=== PATIENT | female | born 1975 | race Caucasian/White ===

== ENCOUNTER 2018-05-02 12:31 | Inpatient (IN) | payer OTHER ==
[2018-05-02] MEDS ORDERED: Ampicillin 2 GM in Sodium Chloride 0.9% 100 ML IV ONE (17:00)
[2018-05-02] MEDS ORDERED: Sodium Chloride 0.9% 10 ML Syringe FLUSH PRN (17:23)
[2018-05-02] MEDS ORDERED: Oxytocin/Lactated Ringers 10 UNIT/1,000 ML BAG IV SCH (17:30)
[2018-05-02] MEDS ORDERED: Misoprostol 25 MCG (1/4 of 100 MCG) Tab ONE (17:45)
[2018-05-02] MEDS: Misoprostol 25 MCG (1/4 of 100 MCG) Tab VAG SCH ×2 (18:04→22:08)
[2018-05-02] MEDS ORDERED: diphenhydrAMINE 50 MG/ML SDV IVPUSH PRN (18:20)
[2018-05-02] MEDS ORDERED: ePHEDrine 50 MG/ML SDV IVPUSH PRN (18:20)
[2018-05-02] MEDS ORDERED: fentaNYL 100 MCG/2 ML SDV EPIDUR PRN (18:20)
[2018-05-02] MEDS ORDERED: Ondansetron 4 MG/2 ML SDV IVPUSH PRN (18:20)
[2018-05-02] MEDS ORDERED: Bupivacaine/fentaNYL/NS 100 ML Bag EPIDUR SCH (18:30)
--- NOTE | 2018-05-02 18:50 | PCM.PREANE ---
Preanesthetic Assessment - Anesthesia/Transfusion/Family Hx Anesthesia History: Prior Anesthesia Without Reaction Family History of Anesthesia Reaction: No Transfusion History: No Prior Transfusion(s) - Review of Systems General: No Symptoms Pulmonary: No Symptoms Cardiovascular: No Symptoms, Other (Hypertension) Gastrointestinal: No Symptoms Neurological: No Symptoms, Other (Back pain and sciatic pain at times) Other: Reports: None - Physical Assessment Pulse: 74 O2 Sat by Pulse Oximetry: 98 Respiratory Rate: 16 Vital Signs: Last Vital Signs Temp 36.8 C 05/02/18 18:33 Pulse 74 05/02/18 18:30 Resp 16 05/02/18 18:33 BP 156/85 H 05/02/18 18:33 Pulse Ox Height: 1.74 m Weight: 126.552 kg ASA Class: 2 Mental Status: Alert & Oriented x3 Airway Class: Mallampati = 2 Dentition: Reports: Normal Dentition Thyro-Mental Finger Breadths: 3 Mouth Opening Finger Breadths: 3 ROM/Head Extension: Full Lungs: Clear to Auscultation, Normal Respiratory Effort Cardiovascular: Regular Rate, Regular Rhythm - Lab Values: Laboratory Last Values WBC 10.02 K/mm3 (3.98-10.04) 05/02/18 17:45 RBC 3.91 M/mm3 (3.98-5.22) L 05/02/18 17:45 Hgb 12.1 gm/L (11.2-15.7) 05/02/18 17:45 Hct 36.5 % (34.1-44.9) 05/02/18 17:45 MCV 93.4 fl (79.4-94.8) 05/02/18 17:45 MCH 30.9 pg (25.6-32.2) 05/02/18 17:45 MCHC 33.2 g/dl (32.2-35.5) 05/02/18 17:45 RDW Std Deviation 47.3 fL (36.4-46.3) H 05/02/18 17:45 Plt Count 210 K/mm3 (182-369) 05/02/18 17:45 MPV 12.2 fl (9.4-12.3) 05/02/18 17:45 Neut % (Auto) 75.7 % (34.0-71.1) H 05/02/18 17:45 Lymph % (Auto) 14.7 % (19.3-51.7) L 05/02/18 17:45 Garza % (Auto) 8.4 % (4.7-12.5) 05/02/18 17:45 Eos % (Auto) 0.7 (0.7-5.8) 05/02/18 17:45 Baso % (Auto) 0.2 % (0.1-1.2) 05/02/18 17:45 Neut # (Auto) 7.59 K/mm3 (1.56-6.13) H 05/02/18 17:45 Lymph # (Auto) 1.47 K/mm3 (1.18-3.74) 05/02/18 17:45 Garza # (Auto) 0.84 K/mm3 (0.24-0.36) H 05/02/18 17:45 Eos # (Auto) 0.07 K/mm3 (0.04-0.36) 05/02/18 17:45 Baso # (Auto) 0.02 K/mm3 (0.01-0.08) 05/02/18 17:45 Blood Type O POSITIVE 05/02/18 17:45 Gel Antibody Screen Negative 05/02/18 17:45 - Allergies Allergies/Adverse Reactions: Allergies Allergy/AdvReac Type Severity Reaction Status Date / Time No Known Allergies Allergy Verified 04/18/18 12:04 - Acknowledgements Anesthesia Type Planned: Epidural Pt an Appropriate Candidate for the Planned Anesthesia: Yes Alternatives and Risks of Anesthesia Discussed w Pt/Guardian: Yes Pt/Guardian Understands and Agrees with Anesthesia Plan: Yes PreAnesthesia Questionnaire Cardiovascular History: Reports: Hypertension BODY FITTER History: Reports: - Past Surgical History Cardiovascular Surgical History: Reports: None - SUBSTANCE USE Smoking Status *Q: Never Smoker Second Hand Smoke Exposure: No Recreational Drug Use History: No - HOME MEDS Home Medications: Home Meds Aspirin [Halfprin] 81 mg PO DAILY 05/02/18 [History] Ferrous Sulfate, Dried [Iron] 1 tab DAILY 05/02/18 [History] Labetalol HCl [Labetalol] 2 tab BID 05/02/18 [History] Vits #93/Iron Fum/FA [ Formula Tablet] 1 tab DAILY 05/02/18 [ History] - CURRENT (IN HOUSE) MEDS Current Meds: Current Medications Diphenhydramine HCl (Benadryl) 25 mg IVPUSH Q6H PRN PRN Reason: Pruritis Ephedrine Sulfate (Ephedrine Sulfate) 5 mg IVPUSH ASDIRECTED PRN PRN Reason: Hypotension Fentanyl (Sublimaze) 100 mcg EPIDUR ONETIME PRN PRN Reason: Pain Fentanyl/Bupivacaine HCl (Fentanyl/Bupivacaine/Ns 2 Mcg-0.125% 100 Ml) 100 ml EPIDUR ASDIRECTED NATHANIEL Ampicillin Sodium 1 gm/ Sodium (Chloride) 100 mls @ 200 mls/hr IV Q4H [facility]ATHANIEL Lactated Ringer's (Ringers, Lactated) 1,000 mls @ 100 mls/hr IV ASDIRECTED NATHANIEL Oxytocin/Lactated Ringer's (Pitocin In Lr 10 Units/1,000 Ml) 10 unit in 1,000 mls @ 12 mls/hr IV TITRATE NATHANIEL; Protocol Misoprostol (Cytotec) 25 mcg VAG Q4HR NATHANIEL Last Admin: 05/02/18 18:04 Dose: 25 mcg Ondansetron HCl (Zofran) 4 mg IVPUSH ONETIME PRN PRN Reason: Nausea/Vomiting Sodium Chloride (Saline Flush) 10 ml FLUSH ASDIRECTED PRN PRN Reason: Keep Vein Open Discontinued Medications Ampicillin Sodium 2 gm/ Sodium (Chloride) 100 mls @ 200 mls/hr IV ONETIME ONE Stop: 05/02/18 17:29 Last Admin: 05/02/18 18:43 Dose: 200 mls/hr Misoprostol (Cytotec) Confirm Administered Dose 25 mcg .ROUTE .STK-MED ONE Stop: 05/02/18 17:46 Last Admin: 05/02/18 17:48 Dose: Not Given
[2018-05-02] MEDS: Ampicillin 1 GM in Sodium Chloride 0.9% 100 ML IV SCH (22:54)
[2018-05-03] MEDS: Misoprostol 25 MCG (1/4 of 100 MCG) Tab VAG SCH ×3 (02:14→18:42)
[2018-05-03] MEDS: Ampicillin 1 GM in Sodium Chloride 0.9% 100 ML IV SCH ×3 (02:57→11:03)
[2018-05-03] MEDS: Lactated Ringers 1,000 ML IV SCH ×3 (06:39→11:01)
[2018-05-03] MEDS ORDERED: Labetalol 100 MG Tab PO SCH (09:00)
--- NOTE | 2018-05-03 13:04 | PCM.SN ---
- Free Text/Narrative Note: Stage I - Patient presented for induction for chronic hypertension. [place] bulb and cytotec x3 doses. SROM clear fluid about 12 hours later. Epidural for anesthesia. Progressed to complete with overall reassuring fht. Stage II - of viable male. Weight 7#1oz. Apgars 8/9. Head delivered in controlled manner over intact perinuem. Body and shoulders atraumatically. Positive cry. Cord clamped and cut. Stage III - of intact placenta. Some calcifications 3VC. EBL 500. No lacerations.
[2018-05-03] MEDS ORDERED: Docusate Sodium 100 MG Cap PO PRN (13:42)
[2018-05-03] MEDS ORDERED: Ibuprofen 600 MG Tab PO PRN (13:42)
[2018-05-03] MEDS ORDERED: Witch Hazel Medicated Pads 100/Jar TOP PRN (15:30)
[2018-05-03] MEDS ORDERED: Benzocaine/Menthol 20%-0.5% Spray 56 GM Canister TOP PRN (15:30)
[2018-05-03] MEDS ORDERED: Bupivacaine 0.25% 10 ML SDV ONE (22:00)
--- NOTE | 2018-05-04 07:43 | PCM48HPAN ---
Post Anesthesia Note - EVALUATION WITHIN 48HRS OF ANESTHETIC Vital Signs in Normal Range: Yes Patient Participated in Evaluation: Yes Respiratory Function Stable: Yes Airway Patent: Yes Cardiovascular Function Stable: Yes Hydration Status Stable: Yes Pain Control Satisfactory: Yes Nausea and Vomiting Control Satisfactory: Yes Mental Status Recovered: Yes Pulse Rate: 76 Resp Rate: 15 Temperature: 97.9 F Blood Pressure: 116/53
--- NOTE | 2018-05-04 09:47 | PCM.PNPP ---
- General Info Date of Service: 05/04/18 Functional Status: Reports: Pain Controlled - Review of Systems General: Reports: No Symptoms HEENT: Reports: No Symptoms Pulmonary: Reports: No Symptoms Cardiovascular: Reports: No Symptoms Gastrointestinal: Reports: No Symptoms Genitourinary: Reports: No Symptoms Musculoskeletal: Reports: No Symptoms Skin: Reports: No Symptoms Neurological: Reports: No Symptoms Psychiatric: Reports: No Symptoms - Patient Data Vital Signs - Most Recent: Last Vital Signs Temp 35.9 C 05/04/18 09:00 Pulse 83 05/04/18 09:00 Resp 16 05/04/18 09:00 BP 136/83 05/04/18 09:00 Pulse Ox 98 05/04/18 09:00 Weight - Most Recent: 126.552 kg I&O - Last 24 Hours: Intake & Output 05/03/18 05/04/18 05/04/18 22:59 06:59 14:59 Intake Total 300 Balance 300 Med Orders - Current: Current Medications Benzocaine/Menthol (Dermoplast Pain Relief [place]) 1 gm TOP ASDIRECTED PRN PRN Reason: Pain Last Admin: 05/03/18 17:38 Dose: 1 spray Docusate Sodium (Colace) 100 mg PO BID PRN PRN Reason: Constipation Ibuprofen (Motrin) 600 mg PO Q6H PRN PRN Reason: Mild pain or fever Witch Elina (Tucks) 1 pad TOP ASDIRECTED PRN PRN Reason: Pain Last Admin: 05/03/18 17:37 Dose: 1 pad Discontinued Medications Diphenhydramine HCl (Benadryl) 25 mg IVPUSH Q6H PRN PRN Reason: Pruritis Ephedrine Sulfate (Ephedrine Sulfate) 5 mg IVPUSH ASDIRECTED PRN PRN Reason: Hypotension Fentanyl (Sublimaze) 100 mcg EPIDUR ONETIME PRN PRN Reason: Pain Last Admin: 05/03/18 07:25 Dose: 100 mcg Fentanyl/Bupivacaine HCl (Fentanyl/Bupivacaine/Ns 2 Mcg-0.125% 100 Ml) 100 ml EPIDUR ASDIRECTED NATHANIEL Last Admin: 05/03/18 07:24 Dose: 100 ml Ampicillin Sodium 2 gm/ Sodium (Chloride) 100 mls @ 200 mls/hr IV ONETIME ONE Stop: 05/02/18 17:29 Last Admin: 05/02/18 18:43 Dose: 200 mls/hr Ampicillin Sodium 1 gm/ Sodium (Chloride) 100 mls @ 200 mls/hr IV Q4H [facility] Last Admin: 05/03/18 11:03 Dose: 200 mls/hr Lactated Ringer's (Ringers, Lactated) 1,000 mls @ 100 mls/hr IV ASDIRECTED NATHANIEL Last Admin: 05/03/18 11:01 Dose: 150 mls/hr Oxytocin/Lactated Ringer's (Pitocin In Lr 10 Units/1,000 Ml) 10 unit in 1,000 mls @ 12 mls/hr IV TITRATE NATHANIEL; Protocol Last Titration: 05/03/18 10:09 Dose: 4 munits/min, 24 mls/hr Labetalol HCl (Normodyne) 200 mg PO BID [facility] Last Admin: 05/03/18 18:47 Dose: Not Given Misoprostol (Cytotec) 25 mcg VAG Q4HR [facility] Last Admin: 05/03/18 18:42 Dose: Not Given Misoprostol (Cytotec) Confirm Administered Dose 25 mcg .ROUTE .STK-MED ONE Stop: 05/02/18 17:46 Last Admin: 05/02/18 17:48 Dose: Not Given Ondansetron HCl (Zofran) 4 mg IVPUSH ONETIME PRN PRN Reason: Nausea/Vomiting Last Admin: 05/03/18 06:52 Dose: 4 mg Sodium Chloride (Saline Flush) 10 ml FLUSH ASDIRECTED PRN PRN Reason: Keep Vein Open - Infant Interaction Infant Disposition, : at Bedside Support Person: - Recovery Exam Fundal Tone: Firm Fundal Level: 1 Fingerbreadths Below Umbilicus Fundal Placement: Midline Lochia Amount: Small, Moderate Lochia Color: Rubra/Red Episiotomy/Laceration: Approximated Bladder Status: Voiding Urinary Elimination: Voided - Exam General: Alert, Oriented HEENT: Pupils Equal Neck: Supple Lungs: Clear to Auscultation, Normal Respiratory Effort Cardiovascular: Regular Rate, Regular Rhythm GI/Abdominal Exam: Normal Bowel Sounds, Soft, Non-Tender, No Organomegaly, No Distention, No Abnormal Bruit, No Mass, Pelvis Stable Extremities: Normal Inspection, Normal Range of Motion, Non-Tender, No Pedal Edema, Normal Capillary Refill Neurological: No New Focal Deficit Psy/Mental Status: Alert, Normal Affect, Normal Mood - Problem List Review Problem List Initiated/Reviewed/Updated: Yes - My Orders Last 24 Hours: My Active Orders 05/03/18 13:42 Activity as Tolerated [RC] PER UNIT ROUTINE Vital Signs [RC] 03,09,15,21 Docusate Sodium [Colace] 100 mg PO BID PRN Ibuprofen [Motrin] 600 mg PO Q6H PRN Assess Lochia [WOMSER] Per Unit Routine Assess Uterine Involution [WOMSER] Per Unit Routine Breast Pump [WOMSER] Per Unit Routine Heat Therapy [OM.PC] PRN Medication Administration Instruction [OM.PC] Routine Perineal Care [OM.PC] Per Unit Routine Sitz Bath [OM.PC] Per Unit Routine 05/03/18 15:30 Benzocaine/Menthol [Dermoplast Pain Relief [place]] 1 gm TOP ASDIRECTED PRN Witch Elina [Tucks] 1 pad TOP ASDIRECTED PRN 05/04/18 13:42 Heat Therapy [OM.PC] PRN 05/04/18 Breakfast Regular Diet [DIET] - Assessment Assessment:: Doing well. Discharge tomorrow. Routine care. Continue labetolol.
--- NOTE | 2018-05-05 08:05 | PCM.DCSUM1 ---
Discharge Summary - Discharge Data Discharge Date: 05/05/18 Discharge Disposition: Home, Self-Care 01 Condition: Good - Patient Instructions Diet: Usual Diet as Tolerated Activity: No Strenuous Activities Driving: May Drive Today Showering/Bathing: May Shower Notify Provider of: Fever, Increased Pain, Swelling and Redness, Nausea and/or Vomiting - Discharge Plan Home Medications: Home Meds Aspirin [Halfprin] 81 mg PO DAILY 05/02/18 [History] Ferrous Sulfate, Dried [Iron] 1 tab DAILY 05/02/18 [History] Labetalol HCl [Labetalol] 2 tab BID 05/02/18 [History] Vits #93/Iron Fum/FA [ Formula Tablet] 1 tab DAILY 05/02/18 [ History] Referrals: Juana Henry MD [Primary Care Provider] - - Discharge Summary/Plan Comment DC Time >30 min.: No - General Info Date of Service: 05/05/18 Functional Status: Reports: Pain Controlled - Review of Systems General: Reports: No Symptoms HEENT: Reports: No Symptoms Pulmonary: Reports: No Symptoms Cardiovascular: Reports: No Symptoms Gastrointestinal: Reports: No Symptoms Genitourinary: Reports: No Symptoms Musculoskeletal: Reports: No Symptoms Skin: Reports: No Symptoms Neurological: Reports: No Symptoms Psychiatric: Reports: No Symptoms - Patient Data Vitals - Most Recent: Last Vital Signs Temp 36.7 C 05/05/18 02:23 Pulse 72 05/05/18 02:23 Resp 16 05/05/18 02:23 BP 128/91 H 05/05/18 02:23 Pulse Ox 96 05/05/18 02:23 Weight - Most Recent: 126.552 kg Med Orders - Current: Current Medications Benzocaine/Menthol (Dermoplast Pain Relief [place]) 1 gm TOP ASDIRECTED PRN PRN Reason: Pain Last Admin: 05/03/18 17:38 Dose: 1 spray Docusate Sodium (Colace) 100 mg PO BID PRN PRN Reason: Constipation Ibuprofen (Motrin) 600 mg PO Q6H PRN PRN Reason: Mild pain or fever Witch Elina (Tucks) 1 pad TOP ASDIRECTED PRN PRN Reason: Pain Last Admin: 05/03/18 17:37 Dose: 1 pad Discontinued Medications Diphenhydramine HCl (Benadryl) 25 mg IVPUSH Q6H PRN PRN Reason: Pruritis Ephedrine Sulfate (Ephedrine Sulfate) 5 mg IVPUSH ASDIRECTED PRN PRN Reason: Hypotension Fentanyl (Sublimaze) 100 mcg EPIDUR ONETIME PRN PRN Reason: Pain Last Admin: 05/03/18 07:25 Dose: 100 mcg Fentanyl/Bupivacaine HCl (Fentanyl/Bupivacaine/Ns 2 Mcg-0.125% 100 Ml) 100 ml EPIDUR ASDIRECTED [facility] Last Admin: 05/03/18 07:24 Dose: 100 ml Ampicillin Sodium 2 gm/ Sodium (Chloride) 100 mls @ 200 mls/hr IV ONETIME ONE Stop: 05/02/18 17:29 Last Admin: 05/02/18 18:43 Dose: 200 mls/hr Ampicillin Sodium 1 gm/ Sodium (Chloride) 100 mls @ 200 mls/hr IV Q4H [facility] Last Admin: 05/03/18 11:03 Dose: 200 mls/hr Lactated Ringer's (Ringers, Lactated) 1,000 mls @ 100 mls/hr IV ASDIRECTED [facility] Last Admin: 05/03/18 11:01 Dose: 150 mls/hr Oxytocin/Lactated Ringer's (Pitocin In Lr 10 Units/1,000 Ml) 10 unit in 1,000 mls @ 12 mls/hr IV TITRATE [facility]; Protocol Last Titration: 05/03/18 10:09 Dose: 4 munits/min, 24 mls/hr Labetalol HCl (Normodyne) 200 mg PO BID [facility] Last Admin: 05/03/18 18:47 Dose: Not Given Misoprostol (Cytotec) 25 mcg VAG Q4HR [facility] Last Admin: 05/03/18 18:42 Dose: Not Given Misoprostol (Cytotec) Confirm Administered Dose 25 mcg .ROUTE .STK-MED ONE Stop: 05/02/18 17:46 Last Admin: 05/02/18 17:48 Dose: Not Given Ondansetron HCl (Zofran) 4 mg IVPUSH ONETIME PRN PRN Reason: Nausea/Vomiting Last Admin: 05/03/18 06:52 Dose: 4 mg Sodium Chloride (Saline Flush) 10 ml FLUSH ASDIRECTED PRN PRN Reason: Keep Vein Open - Exam General: Reports: Alert, Oriented HEENT: Reports: Pupils Equal, Pupils Reactive, EOMI, Mucous Membr. Moist/[place] Neck: Reports: Supple Lungs: Reports: Clear to Auscultation, Normal Respiratory Effort Cardiovascular: Reports: Regular Rate, Regular Rhythm GI/Abdominal Exam: Normal Bowel Sounds, Soft, Non-Tender, No Organomegaly, No Distention, No Abnormal Bruit, No Mass, Pelvis Stable (Female) Exam: Normal External Exam, Normal Speculum Exam, Normal Bimanual Exam Back Exam: Reports: Normal Inspection, Full Range of Motion Extremities: Normal Inspection, Normal Range of Motion, Non-Tender, No Pedal Edema, Normal Capillary Refill Skin: Reports: Warm, Dry, Intact Wound/Incisions: Reports: Healing Well Neurological: Reports: No New Focal Deficit Psy/Mental Status: Reports: Alert, Normal Affect, Normal Mood
== END 2018-05-05 10:30 | disposition home or self-care (01) | DRG 774 ==
LOC: JD.OB 12:31 → EDSTATUS 16:21 → JD.OB 17:07 → OBSVTOIN 05-03 12:31 → JD.OB 05-03 12:32
PROVIDERS: ADMIT Obstetrics & Gynecology; ATTEND Obstetrics & Gynecology
PROC: 10E0XZZ Delivery of Products of Conception, External Approach (ICD-10-PCS; principal; 2018-05-03)
PROC: 0U7C7ZZ Dilation of Cervix, Via Natural or Artificial Opening (ICD-10-PCS; principal; 2018-05-03)
PROC: 3E0R3BZ Introduction of Anesthetic Agent into Spinal Canal, Percutaneous Approach (ICD-10-PCS; 2018-05-03)
PROC: 00HU33Z Insertion of Infusion Device into Spinal Canal, Percutaneous Approach (ICD-10-PCS; 2018-05-03)
DX: O10.92 Unspecified pre-existing hypertension complicating childbirth (principal); O99.824 Streptococcus B carrier state complicating childbirth; O99.214 Obesity complicating childbirth; E66.01 Morbid (severe) obesity due to excess calories; Z68.38 Body mass index [BMI] 38.0-38.9, adult; Z3A.37 37 weeks gestation of pregnancy; Z37.0 Single live birth
CPT/HCPCS: 01967; 36415; 51702; 59020; 59409; 85025; 86850; 86900; 86901; A9270-GY; J0290; J2405; J2590; J3010; J7030; J7120